=== PATIENT | female | born 1945 | race Caucasian/White ===

== ENCOUNTER → 2016-10-30 | Outpatient (CLI) | payer MEDICARE | END | disposition home or self-care (01) | LOC: PCVCCLINIC 16:45 | PROVIDERS: ATTEND Internal Medicine | DX: I10 Essential (primary) hypertension (principal); E78.00 Pure hypercholesterolemia, unspecified; R93.1 Abnormal findings on diagnostic imaging of heart and coronary circulation; Z79.82 Long term (current) use of aspirin; Z79.899 Other long term (current) drug therapy; Z87.891 Personal history of nicotine dependence | CPT/HCPCS: G0463 ==

== ENCOUNTER → 2016-11-01 | Outpatient (CLI) | payer MEDICARE ==
--- NOTE | 2016-11-02 13:40 | PCVCIMAG ---
APPROVED REPORT Study performed: 11/01/2016 15:58:48 EXAM: Comprehensive 2D, Doppler, and color-flow Echocardiogram Status: routine Other Information Study Quality: Adequate Indications Chest Pain Rule out regional wall motion abnormality, HLP, Assess LV function 2D Dimensions LVEF(%): 56.98 (>50%) IVSd: 11.93 (7-11mm) LVDd: 37.72 mm PWd: 11.80 (7-11mm) LVDs: 26.66 (25-40mm) Left Atrium: 31.22 (27-40mm) Aortic Root: 33.66 mm LV Single Plane 4CH: 44.27 % LV Single Plane 2CH: 49.16 %Saucedo's LVEF: 46.72 % Biplane EF: 47.7 % Volumes Left Atrial Volume (Systole) Single Plane 4CH: 43.10 mLSingle Plane 2CH: 52.98 mL LA ESV Index: 32.00 mL/m2 Aortic Valve AoV Peak Darryl.: 1.38 m/s AO Peak Gr.: 7.59 mmHgLVOT Max P.83 mmHg LVOT Max V: 0.84 m/s Mitral Valve E/A Ratio: 0.6 MV Decel. Time: 261.41 ms MV E Max Darryl.: 0.48 m/s MV A Darryl.: 0.83 m/s IVRT: 176.47 ms TDI E/Lateral E': 10.00E/Medial E': 17.00 Pulmonary Valve PV Peak Darryl.: 0.88 m/sPV Peak Gr.: 3.07 mmHg Pulmonary Vein P Vein S: 0.22 m/sP Vein A: 0.44 m/s P Vein D: 0.32 m/sP Vein A Dur.: 131.5 msec P Vein S/D Ratio: 0.69 Tricuspid Valve TR Peak Darryl.: 2.87 m/s TR Peak Gr.: 33.03 mmHg Left Ventricle The left ventricle is normal size. There is normal LV segmental wall motion. Mild concentric left ventricular hypertrophy. Left ventricular systolic function is low normal. LVEF is approx 50%. Grade I - abnormal relaxation pattern. Right Ventricle The right ventricle is normal size. The right ventricular systolic function is normal. Atria The left atrium size is normal. The right atrium size is normal. Aortic Valve The aortic valve is normal in structure. Trivial aortic regurgitation is present. There is no aortic valvular stenosis. Mitral Valve Mild mitral annular calcification. There is no mitral valve regurgitation noted. No evidence of mitral valve stenosis. Tricuspid Valve The tricuspid valve is normal in structure. Mild to moderate tricuspid regurgitation with PAP of 40 mmHg. Pulmonic Valve The pulmonary valve is normal in structure. There is no pulmonic valvular regurgitation. Great Vessels The aortic root is normal in size. IVC is normal in size and collapses with >50% inspiration Pericardium There is no pericardial effusion. <Conclusion> The left ventricle is normal size. Left ventricular systolic function is low normal. LVEF is approx 50%. The aortic valve is normal in structure. Trivial aortic regurgitation is present. Mild mitral annular calcification. The tricuspid valve is normal in structure. The pulmonary valve is normal in structure.
== END | disposition home or self-care (01) ==
LOC: PCVCIMAG 15:56
PROVIDERS: ATTEND Internal Medicine
DX: I08.2 Rheumatic disorders of both aortic and tricuspid valves (principal); I10 Essential (primary) hypertension; E78.00 Pure hypercholesterolemia, unspecified
CPT/HCPCS: 93306